=== PATIENT | female | born 1980 | race Caucasian/White ===

== ENCOUNTER 2019-06-08 20:44 | Emergency (ER) | payer MEDICAID ==
[2019-06-08 20:55] VITALS: BP 139/81; PULSE 104
--- NOTE | 2019-06-08 21:36 | EDM.PDOC ---
ED HPI GENERAL MEDICAL PROBLEM - General Chief Complaint: Skin Complaint Stated Complaint: rash Time Seen by Provider: 06/08/19 21:07 Source of Information: Reports: Patient History Limitations: Reports: No Limitations - History of Present Illness INITIAL COMMENTS - FREE TEXT/NARRATIVE: Ms. Patel is a very pleasant 38-year-old woman with a past medical history significant for methamphetamine and heroin addiction, who states that she developed what she believes to be psoriatic lesions over most of her body about one month ago. The lesions have been itchy, but they started burning today, therefore the patient started to apply an sfli-gtc-ndowfzi steroid cream, which only seemed to make the burning sensation worse. She states that prior to about a month ago, she never had similar skin lesions. The patient states that she has been injecting, snorting, and smoking methamphetamine for 20 years, but decided on her own volition to stop 16 days ago. She has also injected, snorted, and smoked heroin, with her last use on 12/15. She also smokes marijuana daily, but stopped this, as well, 16 days ago. She is currently residing at [facility]. The patient does not have a PCP She has an appointment to see the Psychiatrist Dr. Namita White tomorrow. Generalized Pain Score (Numeric/FACES): 7 - Related Data Allergies Allergy/AdvReac Type Severity Reaction Status Date / Time acetaminophen Allergy Swelling Verified 06/08/19 20:56 [From Excedrin Tension Headache] aspirin Allergy Other Verified 06/08/19 20:56 caffeine Allergy Swelling Verified 06/08/19 20:56 [From Excedrin Tension Headache] altaryl Allergy Swelling Uncoded 06/08/19 20:56 Home Meds: Home Meds . [No Known Home Meds] 06/08/19 [History] Past Medical History Respiratory History: Reports: Asthma (suspected, not tested) [employer]ENT History: Reports: Psychiatric History: Reports: Addiction (methamphetamine, heroin), Anxiety ( untreated), Depression (untreated) Endocrine/Metabolic History: Reports: Obesity/BMI 30+ - Past Surgical History HEENT Surgical History: Reports: Oral Surgery (wisdom teeth extractions) Female Surgical History: Reports: Section (x 2) Social & Family History - Tobacco Use Smoking Status *Q: Current Every Day Smoker Years of Tobacco use: 19 Packs/Tins Daily: 0.5 Packs/Tins Daily Comment: Down from 2 ppd - Caffeine Use Caffeine Use: Reports: Coffee, Energy Drinks, Soda - Alcohol Use Alcohol Use History: Yes Alcohol Use Frequency: Socially (occasionally to excess) - Recreational Drug Use Recreational Drug Use: Yes Drug Use in Last 12 Months: Yes Recreational Drug Type: Reports: Heroin (last injected, snorted, smoked 12/15/2018 ), Marijuana/Hashish (last smoked 05/23/2019), Methamphetamine (last injected, snorted, smoked 05/23/2019) Other Recreational Drug Type: last used at 16 days ago - Living Situation & Occupation Living situation: Reports: Single, Other ([facility]) Occupation: Unemployed ED ROS GENERAL - Review of Systems Review Of Systems: ROS reveals no pertinent complaints other than HPI. ED EXAM, SKIN/RASH Exam: See Below Exam Limited By: No Limitations General Appearance: Alert, WD/WN, No Apparent Distress Eye Exam: Bilateral Eye: EOMI, Normal Inspection Ears: Normal External Exam, Hearing Grossly Normal, Normal TMs, Other (Small erythematous patches with dry scales in both external auditory canals and to the inferior aspects of the earlobes) Nose: Normal Inspection, Normal Mucosa, No Blood Throat/Mouth: Normal Inspection, Normal Lips, Normal Voice, No Airway Compromise Head: Atraumatic, Normocephalic, Other (A few erythematous lesions noted on the scalp) Neck: Normal Inspection, Full Range of Motion Respiratory/Chest: No Respiratory Distress, Lungs Clear, Normal Breath Sounds, No Accessory Muscle Use, Other (Erythematous patches without scales to the intertriginous areas under both breasts) Cardiovascular: Normal Peripheral Pulses, Regular Rate, Rhythm, No Gallop, No JVD, No Murmur, No Rub Peripheral Pulses: 4+: Radial (L), Radial (R) GI/Abdominal: Normal Bowel Sounds, Soft, Non-Tender, No Organomegaly, No Distention, No Abnormal Bruit, No Mass (Female) Exam: Deferred Rectal (Female) Exam: Deferred Back Exam: Normal Inspection, Full Range of Motion, Other (A few erythematous lesions on the back) Extremities: Normal Range of Motion, No Pedal Edema, Normal Capillary Refill, Other (Raised erythematous patches with silver scales on the extensor surfaces of both elbows, and numerous centimeter diameter patches on the bilateral upper and lower extremities. No patches over the extensor surfaces of the knees. The patient's fingernails are polished, therefore I cannot evaluate for nail pitting.) Neurological: Alert, Oriented, Normal Cognition, No Motor/Sensory Deficits Psychiatric: Normal Affect Skin: Warm, Dry, Intact Course - Vital Signs Last Recorded V/S: Last Vital Signs Temp 36.1 C 06/08/19 20:53 Pulse 104 H 06/08/19 20:53 Resp 18 06/08/19 20:53 BP 139/81 06/08/19 20:53 Pulse Ox 95 06/08/19 20:53 - Orders/Labs/Meds Labs: Laboratory Tests 06/08/19 Range/Units 22:10 Vitamin D 25-Hydroxy 8.4 L (30.0-100.0) ng/ml - Re-Assessments/Exams Free Text/Narrative Re-Assessment/Exam: 06/08/19 21:37 The patient appears to have a combination of chronic plaque psoriasis, guttate psoriasis, and inverse psoriasis, 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 Why the patient began having these lesions just one month ago is unclear, but possible precipitants could include her use of heroin (which metabolizes to morphine), stress, or a vitamin D deficiency. I have ordered a vitamin D level to be obtained here in the ED, so that the results will be available to the patient's PCP when she sees them. At present, I am recommending that she continue to use an uget-eon-srhcsvo topical steroid and a good emollient, such as Aquaphor, Eucerin, Aveeno, or Lubriderm. Ultimately, the patient will likely need to see a Event Planning Intern, however, I will refer her to the clinic, where a prescription topical medication or initiation of phototherapy could be considered. Departure - Departure Time of Disposition: 21:51 Disposition: Home, Self-Care 01 Condition: Good Clinical Impression: Psoriasis - Discharge Information *PRESCRIPTION DRUG MONITORING PROGRAM REVIEWED*: Not Applicable *COPY OF PRESCRIPTION DRUG MONITORING REPORT IN PATIENT LAI: Not Applicable Instructions: Psoriasis, [id number] Referrals: Anitha Wiley MD [Primary Care Provider] - Forms: ED Department Discharge Additional Instructions: You were seen in the emergency room for 1 month of itchy and burning skin lesions. Based on your history of physical examination, it appears that you are suffering from psoriasis. We recommend that you continue to use an mmge-sdw-yaopfye topical steroid cream , to be applied to the itchy and burning areas once or twice a day. We also recommend that you purchase a good moisturizing emollient lotion, such as Aquaphor, Eucerin, Aveeno, or Lubriderm, and apply this to your entire body at least once or twice a day. We recommend that you call the office of Dr. Anitha Wiley tomorrow morning, 06/09/2019, to make an appointment to be seen by her this coming or Friday. A vitamin D level was drawn in the emergency room so that the results should be available to Dr. Wiley when you see her. If any other problems, please do not hesitate to return to the ER.
== END 2019-06-08 22:20 | disposition home or self-care (01) ==
LOC: JD.ED 20:44
DX: L40.9 Psoriasis, unspecified (principal); E66.9 Obesity, unspecified; F17.210 Nicotine dependence, cigarettes, uncomplicated; Z91.018 Allergy to other foods; Z88.6 Allergy status to analgesic agent; Z88.8 Allergy status to other drugs, medicaments and biological substances; Z68.30 Body mass index [BMI] 30.0-30.9, adult
CPT/HCPCS: 36415; 82306; 99282